=== PATIENT | male | born 1995 | race Caucasian/White ===

== ENCOUNTER 2017-12-13 14:02 | Outpatient (CLI) | payer BC ==
--- NOTE | 2017-12-13 16:25 | ULT ---
SCROTAL ULTRASOUND INCLUDING COLOR AND SPECTRAL DOPPLER IMAGING: Date: 12/13/17 HISTORY: 22-year-old male with history of right testicular pain which began last night. FINDINGS: Right testis measures 4.6 x 3.2 x 2.4 cm. Left testis measures 4.2 x 2.3 x 2.6 cm. Two right epididym al cysts are noted, one measuring 0.8 x 1.2 cm, and the other one measuring 0.5 x 0.8 cm. No intrates ticular mass. Arterial inflow and venous outflow to both testes. No evidence for testicular torsion. No hydrocele. IMPRESSION: No intratesticular mass or testicular torsion. Right-sided epididymal cyst up to 0.8 x 1.2 cm. POS: [facility]
== END 2017-12-13 14:03 | disposition home or self-care (01) ==
LOC: SCSULT 14:02
PROVIDERS: ATTEND Family Medicine
DX: N50.811 Right testicular pain (principal); N50.3 Cyst of epididymis
CPT/HCPCS: 76870; 93976

== ENCOUNTER 2021-10-08 15:41 | Outpatient (CLI) | payer BC | END 2021-10-08 15:42 | disposition home or self-care (01) | LOC: LABBT 15:41 | PROVIDERS: ATTEND Student in an Organized Health Care Education/Training Program | DX: Z20.822 Contact with and (suspected) exposure to COVID-19 (principal) | CPT/HCPCS: 87811 ==